=== PATIENT | female | born 1965 | race Two or more races ===

== ENCOUNTER 2022-12-18 03:58 | Day surgery (SDC) | payer OTHER ==
[2022-12-17 11:52] VITALS: BMI 40.1
[2022-12-18] MEDS ORDERED: ONDANSETRON 4 MG/2 ML VIAL IVPUSH PRN (14:45)
[2022-12-18] MEDS ORDERED: LACTATED RINGERS SOLUTION 1,000 ML IV SCH (14:45)
[2022-12-18] MEDS ORDERED: oxyCODONE HCL 5 MG TABLET PO PRN (14:45)
[2022-12-18] MEDS ORDERED: ACETAMINOPHEN 1000 MG/100 ML BAG IVPB ONE (14:46)
[2022-12-18] MEDS ORDERED: PROPOFOL 20 ML ONE (15:13)
[2022-12-18] MEDS ORDERED: MIDAZOLAM HCL 2 MG/2 ML SINGLE DOSE VIAL ONE (15:13)
[2022-12-18] MEDS ORDERED: ceFAZolin SODIUM 1 GM VIAL IVPB ONE (15:17)
[2022-12-18] MEDS ORDERED: LIDOCAINE HCL/PF 2% SDV 5ML VIAL ONE (15:19)
[2022-12-18] MEDS ORDERED: SUCCINYLCHOLINE CHLORIDE 200 MG/10 ML SYRINGE ONE (15:20)
[2022-12-18] MEDS ORDERED: DEXAMETHASONE SOD PHOSPHATE 4 MG/1 ML VIAL ONE (15:24)
[2022-12-18] MEDS ORDERED: ONDANSETRON 4 MG/2 ML VIAL ONE (15:24)
[2022-12-18] MEDS ORDERED: ACETAMINOPHEN INJECTION 100 ML IVPB ONE (15:53)
[2022-12-18 16:34] VITALS: RESP 18
[2022-12-18 18:43] VITALS: BP 110/64; PULSE 89; TEMP 98.2
== END 2022-12-18 18:30 | disposition home or self-care (01) ==
LOC: JASU-SURG 03:58
PROVIDERS: ATTEND Urology
PROC: 0TVC8ZZ Restriction of Bladder Neck, Via Natural or Artificial Opening Endoscopic (ICD-10-PCS; principal; 2022-12-18 15:00)
DX: N36.42 Intrinsic sphincter deficiency (ISD) (principal)
CPT/HCPCS: 51715; L8606; 82962; 94760

== ENCOUNTER 2023-04-14 04:05 | Day surgery (SDC) | payer OTHER ==
[2023-04-10 12:11] VITALS: BMI 39.1
[2023-04-14] MEDS ORDERED: ONDANSETRON 4 MG/2 ML VIAL ONE (07:34)
[2023-04-14] MEDS ORDERED: LIDOCAINE HCL/PF 2% SDV 5ML VIAL ONE (07:34)
[2023-04-14] MEDS ORDERED: KETOROLAC TROMETHAMINE 30 MG/1 ML VIAL ONE (07:34)
[2023-04-14] MEDS ORDERED: MIDAZOLAM HCL 2 MG/2 ML SINGLE DOSE VIAL ONE (07:35)
[2023-04-14] MEDS ORDERED: PROPOFOL 40 ML ONE (07:35)
[2023-04-14] MEDS ORDERED: FENTANYL CITRATE/PF 50 MCG/ML VIAL ONE ×2 (07:35)
[2023-04-14] MEDS ORDERED: LIDOCAINE HCL 2% JELLY 11 ML TP ONE (07:39)
[2023-04-14] MEDS ORDERED: GENTAMICIN SO4 80 MG/2 ML VIAL ONE (07:56)
[2023-04-14] MEDS ORDERED: ceFAZolin SODIUM 1 GM VIAL IVPB ONE (08:00)
[2023-04-14] MEDS ORDERED: GENTAMICIN SO4 80 MG/2 ML VIAL IVPB ONE (08:00)
[2023-04-14] MEDS ORDERED: ELECTROLYTE-148 SOLN 1,000 ML IV SCH (08:30)
[2023-04-14] MEDS ORDERED: ACETAMINOPHEN 500 MG TABLET (FP) PO PRN (08:33)
[2023-04-14] MEDS ORDERED: ONDANSETRON 4 MG/2 ML VIAL IVPUSH PRN (08:33)
[2023-04-14] MEDS ORDERED: LACTATED RINGERS SOLUTION 1,000 ML IV SCH (08:45)
[2023-04-14 09:18] VITALS: RESP 18
[2023-04-14 10:48] VITALS: BP 114/56; PULSE 76; TEMP 97.7
== END 2023-04-14 10:30 | disposition home or self-care (01) ==
LOC: JASU-SURG 04:05
PROVIDERS: ATTEND Urology
PROC: 0TV Urinary System, Restriction (ICD-10-PCS; principal; 2023-04-14 07:30)
DX: N36.42 Intrinsic sphincter deficiency (ISD) (principal)
CPT/HCPCS: 51715; L8606; 82962; 94760; C1713